=== PATIENT | female | born 1985 | race Caucasian/White ===

== ENCOUNTER 2022-11-28 19:03 | Emergency (ER) | payer OTHER, MEDICAID ==
[~2022-11-28] VITALS: Ht 160 cm; Wt 80.0 kg
[~2022-11-28 19:03] MED LIST: IMO2C PO; PHEN-786 PO
[2022-11-28 19:06] VITALS: BP 137/83
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
[2022-11-28] MEDS ORDERED: ketorolac trometh inj. 60 MG/2 ML VIAL IM ONE (20:50)
== END 2022-11-28 21:55 | disposition home or self-care (01) ==
LOC: ER 19:04
DX: S39.012A Strain of muscle, fascia and tendon of lower back, initial encounter (principal); Z88.8 Allergy status to other drugs, medicaments and biological substances; Z88.5 Allergy status to narcotic agent; V49.9XXA Car occupant (driver) (passenger) injured in unspecified traffic accident, initial encounter; Y93.89 Activity, other specified; Y92.89 Other specified places as the place of occurrence of the external cause; Y99.8 Other external cause status
CPT/HCPCS: 72100; 96372; 99283; J1885